=== PATIENT | female | born 1995 | race Caucasian/White ===

== ENCOUNTER 2022-11-09 06:36 | Day surgery (SDC) | payer BC ==
[2022-11-05 11:54] VITALS: BMI 30.9
[2022-11-09] MEDS ORDERED: fentaNYL PF 100 MCG/2 ML SYRINGE ONE (07:18)
[2022-11-09] MEDS ORDERED: fentaNYL 50 mcg/mL 1 mL Vial ONE (07:18)
[2022-11-09] MEDS ORDERED: Ketamine 50 MG/ML (10ML VIAL) ONE (07:18)
[2022-11-09] MEDS ORDERED: Dexmedetomidine 200 MCG/2 ML VIAL ONE (07:19)
[2022-11-09] MEDS ORDERED: Acetaminophen 500 MG TAB ONE (08:10)
[2022-11-09] MEDS ORDERED: Dexamethasone 20 MG/5 ML VIAL ONE (08:33)
[2022-11-09] MEDS ORDERED: Esmolol 100 MG/10 ML VIAL ONE (08:33)
[2022-11-09] MEDS ORDERED: PROPOFOL 200 MG/20 ML VIAL ONE (08:33)
[2022-11-09] MEDS ORDERED: Ondansetron PF 4 MG/2 ML Vial ONE (08:33)
[2022-11-09] MEDS ORDERED: Hydrocodone-Acetamin 15 ML UDCUP ONE (10:32)
== END 2022-11-09 11:15 | disposition home or self-care (01) ==
LOC: SDC 06:36
PROVIDERS: ATTEND Student in an Organized Health Care Education/Training Program
PROC: 0CBPXZZ Excision of Tonsils, External Approach (ICD-10-PCS; principal; 2022-11-09)
DX: J35.3 Hypertrophy of tonsils with hypertrophy of adenoids (principal); G47.33 Obstructive sleep apnea (adult) (pediatric); J03.91 Acute recurrent tonsillitis, unspecified; H93.293 Other abnormal auditory perceptions, bilateral; F17.200 Nicotine dependence, unspecified, uncomplicated
CPT/HCPCS: 88304; J1100; J2405; J2704; J3010